=== PATIENT | female | born 1960 | race African-American/Black ===

== ENCOUNTER 2017-06-06 14:56 | Emergency (ER) | payer SELFPAY ==
[2017-06-06 15:09] VITALS: BP 146/82; PULSE 76; TEMP 98.4; BMI 41.1
--- NOTE | 2017-06-06 16:20 | PDOC ---
History of Present Illness - General Chief Complaint: Sore Throat Stated Complaint: THROAT PAIN Time Seen by Provider: 06/06/17 15:24 History Source: Patient Exam Limitations: No Limitations - History of Present Illness Initial Comments: 06/06/17 16:17 c/o sore throat for one day with sores on tounge and gum. no fever no sick contacts. pt currently eating potato chips. Past History - Past Medical History Allergies/Adverse Reactions: Allergies Allergy/AdvReac Type Severity Reaction Status Date / Time lisinopril Allergy Verified 06/06/17 15:08 Home Medications: Ambulatory Orders Amoxicillin - [Amoxicillin 875mg Tablet -] 875 mg PO ASDIR 06/06/17 Clindamycin [Cleocin -] 300 mg PO TID 06/06/17 HTN: Yes - Psycho/Social/Smoking Cessation Hx Suicidal Ideation: No Smoking History: Never smoked Hx Alcohol Use: No Drug/Substance Use Hx: No *Physical Exam - Vital Signs Last Vital Signs Temp Pulse Resp BP Pulse Ox 98.4 F 76 18 146/82 100 06/06/17 15:06 06/06/17 15:06 06/06/17 15:06 06/06/17 15:06 06/06/17 15:06 - Physical Exam General Appearance: Yes: Nourished, Appropriately Dressed HEENT: positive: EOMI, [place], Pharyngeal Erythema, Other (right lower gum with white vesicle with red border , lateral right side tounge with same ). negative : Tonsillar Exudate, Tonsillar Erythema Neck: positive: Supple Respiratory/Chest: positive: Lungs Clear, Normal Breath Sounds Cardiovascular: positive: Regular Rhythm, Regular Rate Extremity: positive: Normal Capillary Refill, Normal Inspection Integumentary: positive: Normal Color, Dry, Warm ED Treatment Course - ADDITIONAL ORDERS Additional order review: 06/06/17 15:45 Group A Strep Rapid Antigen - Final Throat *DC/Admit/Observation/Transfer Diagnosis at time of Disposition: Pharyngitis Qualifiers: Pharyngitis/tonsillitis etiology: unspecified etiology Qualified Code(s): J02.9 - Acute pharyngitis, unspecified - Discharge Dispostion Disposition: HOME Condition at time of disposition: Good - Referrals Referrals: STAFF,NOT ON [Primary Care Provider] - - Patient Instructions Additional Instructions: gargle with warm salt water 4-5 times a day take motrin for pain as needed (over the counter) ice pops, jello, ice cream, soft foods and fluids will help with pain
== END 2017-06-06 16:34 | disposition home or self-care (01) ==
LOC: JERFT 14:56
DX: J02.9 Acute pharyngitis, unspecified (principal); I10 Essential (primary) hypertension
CPT/HCPCS: 87070; 87430; 99281-25